=== PATIENT | female | born 1950 | race Caucasian/White ===

== ENCOUNTER 2017-03-01 08:15 | Emergency (ER) | payer OTHER ==
[~2017-03-01] VITALS: Ht 154.9 cm; Wt 60.7 kg
[~2017-03-01 08:15] MED LIST: EXM/25 PO
[2017-03-01 08:22] VITALS: TEMP 36.6; Ht 154.9 cm; Wt 60.7 kg
[2017-03-01] MEDS ORDERED: DiphenhydrAMINE HCL 50 MG/ML VIAL IM STA (08:43)
[2017-03-01] MEDS ORDERED: METH4PAK PO (08:47)
--- NOTE | 2017-03-01 08:50 | EMERGENCY ROOM VISIT NOTE ---
ED Visit Note First contact with patient: 08:33 CHIEF COMPLAINT: Rash, itchiness of bilateral lower legs HISTORY OF PRESENT ILLNESS: This is a 66-year-old female patient presents to the emergency department with her son, who is interpreting for her, complaining of a rash on bilateral lower extremities which started approximately 5-6 days ago. The patient states she had been outside and obtained blood bites on both lower legs. She believes they were from mosquitoes, however is uncertain which insect bit her. The patient states over the past 5 or 6 days, the lesions have grown and become more itchy and painful. She has been using vitamin A and D cream for dry skin without relief. The patient denies using Benadryl or OTC medications for the symptoms. She denies fevers, chills, abdominal pain, nausea , vomiting, headache, dyspnea, palpitations, body aches, weakness. She denies other itchiness or swelling. The patient denies fatigue or other systemic symptoms. The patient rates the discomfort as 5/10. No new medications. No weakness or numbness. REVIEW OF SYSTEMS: A 6 system review of systems was completed with positives and pertinent negatives listed in the HPI. ALLERGIES: None MEDICATIONS: None PMH: None SOCIAL HISTORY: Lives locally with her family. The patient does not speak [place], however her son is translating for her. The patient prefers lithuanian. The patient denies drug, alcohol, tobacco use. PHYSICAL EXAM: Vital Signs: Reviewed Nurse's notes, vital signs stable. GENERAL: 66-year-old female, in no acute distress, well-developed, well- nourished. SKIN: Urticaria noted on bilateral lower extremities. There are some superficial excoriations noted surrounding the care. Some lesions are indurated with extremely mild erythema surrounding them. No signs of infection or drainage. Capillary refill less than 2 seconds. HEART: RRR, no murmurs, gallops, rubs LUNGS: CTA bilaterally without wheezes, rhonchi, rales. EMERGENCY DEPARTMENT COURSE: The patient was seen and evaluated as above. The patient was given a dose of Benadryl 50 mg IM. I did discuss the case with Dr. Jeter, who did recommend OTC Benadryl at this time. I discussed discharge distractions with the patient and her son at bedside. The patient was discharged home in good condition. DIFFERENTIAL DIAGNOSIS: Infection, cellulitis, insect bites, urticaria, allergic reaction, anaphylaxis. DIAGNOSIS: Urticaria, insect bites DISCHARGE INSTRUCTIONS: You may use OTC Benadryl (diphenhydramine) 25-50 mg every 4-6 hours for ongoing itchiness and rash. You may use topical calamine lotion or hydrocortisone cream to help with the itchiness. Please return to the emergency department for worsening symptoms, redness, worsening itchiness, fever, chills, difficulty breathing, drainage or pus from the bites, or other concerning symptoms. Please get established with the PCP who your sees for further evaluation and recheck of the wounds in 2-3 days. Problem List Medical Problems: (1) Breast cancer Status: Resolved Current/Historical Medications Scheduled Exemestane (Aromasin), 25 MG PO QPM Allergies Coded Allergies: No Known Allergies (Unverified , 03/12/15) Vital Signs Date Time Temp Pulse Resp B/P (MAP) Pulse Ox O2 Delivery O2 Flow Rate FiO2 03/01/17 09:05 58 18 126/72 98 Room Air 03/01/17 08:22 36.6 58 18 104/65 97 Room Air Medications Administered Medications (Trade) Dose Ordered Sig/Daryl Route Start Time Stop Time Status Last Admin Dose Admin Diphenhydramine HCl (Benadryl Inj) 50 mg NOW STAT IM 03/01/17 08:43 03/01/17 08:46 DC 03/01/17 08:55 50 MG Departure Information Impression Primary Impression: Urticaria Additional Impression: Insect bite of lower extremity Dispostion Home / Self-Care Condition GOOD Referrals No Doctor, Assigned (PCP) Patient Instructions ED Urticaria, [facility] Additional Instructions You may use OTC Benadryl (diphenhydramine) 25-50 mg every 4-6 hours for ongoing itchiness and rash. You may use topical calamine lotion or hydrocortisone cream to help with the itchiness. Please return to the emergency department for worsening symptoms, redness, worsening itchiness, fever, chills, difficulty breathing, drainage or pus from the bites, or other concerning symptoms. Please get established with the PCP who your sees for further evaluation and recheck of the wounds in 2-3 days. Problem Qualifiers Additional Impression: Insect bite of lower extremity Encounter type: initial encounter Laterality: unspecified laterality Qualified Codes: S80.869A - Insect bite (nonvenomous), unspecified lower leg, initial encounter; W57.XXXA - Bitten or stung by nonvenomous insect and other nonvenomous arthropods, initial encounter
--- NOTE | 2017-03-01 09:02 | EMERGENCY ROOM VISIT NOTE ---
ED Visit Note First contact with patient: 08:33 Staff note: I have reviewed the Patients chart and have discussed this case with my PA. I generally agree with the ED note and findings.
[2017-03-01 09:05] VITALS: BP 126/72; PULSE 58; O2SAT 98
== END 2017-03-01 09:13 | disposition home or self-care (01) ==
LOC: C.EDB 08:17 → C.EDA 09:12
DX: L50.9 Urticaria, unspecified (principal); S80.861A Insect bite (nonvenomous), right lower leg, initial encounter; S80.862A Insect bite (nonvenomous), left lower leg, initial encounter; W57.XXXA Bitten or stung by nonvenomous insect and other nonvenomous arthropods, initial encounter; Z85.3 Personal history of malignant neoplasm of breast; Z79.899 Other long term (current) drug therapy